=== PATIENT | female | born 1975 | race Asian ===

== ENCOUNTER 2022-08-25 19:13 | Emergency (ER) | payer MEDICAID ==
[~2022-08-25] VITALS: Ht 157.5 cm; Wt 59.4 kg
[2022-08-25 19:32] VITALS: BP 142/92
--- NOTE | 2022-08-25 22:58 | NUR ---
Patient taken to bed 5.
--- NOTE | 2022-08-25 23:05 | NUR ---
Dr. Green examining patient.
[2022-08-25] MEDS ORDERED: diazePAM 5 MG TAB PO ONE (23:10)
[2022-08-25] MEDS ORDERED: KETOROLAC 30 MG/ML VIAL IM ONE (23:10)
--- NOTE | 2022-08-26 00:18 | NUR ---
PT RETURN FROM RADIOLOGY
[2022-08-26] MEDS ORDERED: HYDROcodone/APAP 5/325 MG 1 TAB TAB PO ONE (00:45)
[2022-08-26] MEDS ORDERED: LID5T TP (01:16)
[2022-08-26] MEDS ORDERED: DIAZ5TAB6 PO (01:16)
[2022-08-26] MEDS ORDERED: NAPR-54 PO (01:16)
--- NOTE | 2022-08-26 01:46 | NUR ---
Patient discharged with v/s stable. Written and verbal after care instructions given and explained. Patient alert, oriented and verbalized understanding of instructions. Ambulatory with steady gait. All questions addressed prior to discharge. ID band removed. Patient advised to follow up with PMD. Rx of Diazepam, Lidocaine hyd and naproxen given. Opportunity to ask questions provided and answered.
--- NOTE | 2022-08-26 02:13 | NUR ---
The patient's care was reviewed and supervised by Caridad Metzger RN, RN.
== END 2022-08-26 01:46 | disposition home or self-care (01) ==
LOC: MED 19:13
DX: M54.2 Cervicalgia (principal); Z20.822 Contact with and (suspected) exposure to COVID-19
CPT/HCPCS: 72040; 87426; 96372; 99284; J1885